=== PATIENT | female | born 1990 | race Caucasian/White ===

== ENCOUNTER 2018-03-15 11:33 | Emergency (ER) | payer MEDICAID, SELFPAY ==
[2018-03-15 11:34] VITALS: BP 131/82; PULSE 77; RESP 16; TEMP 36.6; O2SAT 100; BMI 23.0
--- NOTE | 2018-03-15 11:55 | RAD_ITS ---
STUDY: X-RAY - RIGHT FOOT CLINICAL: Female, 28 years old. Pain following a recent fall. TECHNIQUE: 3 view(s) of the foot. COMPARISON: None. FINDINGS: Normal talus, calcaneus, and tarsal bones. Normal visualized subtalar, talonavicular, calcaneocuboid, tarsal and tarsometatarsal articulations. Normal metatarsi. Normal metatarsophalangeal joint of the great toe. Normal tibial and fibular sesamoid bones. Normal interphalangeal joint of the great toe. Normal phalanges of the great toe. Normal second through fifth metatarsophalangeal joints. Normal interphalangeal joints and phalanges of the lesser toes. The soft tissue structures are unremarkable. RAD/Foot min 3 Views IMPRESSION: Normal x-ray examination of the foot. Electronically Signed: Len Ontiveros MD at 12:48 EST Tel [phone], Service support ,
--- NOTE | 2018-03-15 11:58 | ED.DCSUM_ITS ---
- ER Visit Summary Date of Service: 03/15/18 Chief Complaint: Right foot injury History of Present Illness: The patient is a 28 F who presents for evaluation of a right foot injury that occurred 2 days ago. Patient slipped on some steps and fell, with burning in her foot upon landing. She has pain with weightbearing and improvement with remaining still. She is used ice, Motrin and Tylenol with some relief of the pain. Pain is mainly on the dorsum of the distal foot and worse with movement of the toes. Patient denies any numbness or paresthesia in the foot. Physical Examination: Patient is awake and alert, well-nourished and well-developed in no distress. Examination of the lower extremities shows symmetric appearance, 2+ DP pulses and symmetric. Right foot has contusion to the dorsum of the foot at the base of the second through fourth toes. Sensation and motor function intact all dermatomes. No deformities. Tenderness to palpation on the plantar surface of the distal foot. No tenderness to palpation of the ankle, including the posterior malleoli. No tenderness to palpation of the navicular head or base of the fifth metatarsal. Remainder of exam unremarkable. Test Results: Clinical Impression(s) from Imaging Studies Foot X-Ray 03/15/18 11:55 IMPRESSION: Normal x-ray examination of the foot. Electronically Signed: Len Ontiveros MD at 12:48 EST Tel [phone], Service support , Emergency Department Course and Treatment: Patient took Motrin and Tylenol 2 hours prior to presentation, and thus was not given any further pain medication. X-ray of the foot showed no fractures or dislocations. Patient was placed in a postop shoe, and was able to ambulate more comfortably. She will use [id number]-[id number] pain medication, ice, rest and elevation. Patient discharged home. Treatment Plan: [] Disposition: [] Impression: Right foot sprain, right foot contusion This note was generated with Aginova[employer] software. It may contain incorrect words, spelling, and punctuation that were not noted in review of the chart prior to signing ED Disposition - Plan for ED Patient: Disposition: Home or Assisted Living Chief Complaint: Lower Extremity Injury Instructions: ED Sprain Foot Referrals: Pascale Andersen MD [STAFF PHYSICIAN] - 1 Week if not improving Additional Instructions: Wear the postop shoe for comfort. Rest and elevate your foot as much as possible over the next few days. you may use gyor-tvy-bpvfidr pain medication and ice as needed to help with pain control. If you have any worsening of your condition or any new concerning symptoms, please return immediately to the emergency department for another evaluation.
--- NOTE | 2018-03-15 13:20 | ED.DEP ---
ED Disposition - Plan for ED Patient: Disposition: Home or Assisted Living Chief Complaint: Lower Extremity Injury Instructions: ED Sprain Foot Referrals: Pascale Andersen MD [STAFF PHYSICIAN] - 1 Week if not improving Additional Instructions: Wear the postop shoe for comfort. Rest and elevate your foot as much as possible over the next few days. you may use sttx-itx-[id number] pain medication and ice as needed to help with pain control. If you have any worsening of your condition or any new concerning symptoms, please return immediately to the emergency department for another evaluation.
[2018-03-15 13:27] VITALS: RESP 14
== END 2018-03-15 13:47 | disposition home or self-care (01) ==
PROVIDERS: Emergency Provider Emergency Medicine
DX: S93.601A Unspecified sprain of right foot, initial encounter (principal); W01.0XXA Fall on same level from slipping, tripping and stumbling without subsequent striking against object, initial encounter; Z72.0 Tobacco use
CPT/HCPCS: 73630; 99283

== ENCOUNTER → 2019-09-06 14:29 | Outpatient (CLI) | payer MEDICAID, SELFPAY ==
[2019-09-06 15:27] LABS: Absolute Lymphocyte Count 1.97 X10^3/uL (0.83-4.51); Basophil# 0.06 X10^3/uL; Basophil% 0.7 % (0-1); Eosinophil# 0.11 X10^3/uL; Eosinophils% 1.4 % (0-5); Hematocrit 40.3 % (37-47); Hemoglobin 13.5 g/dL (12.0-15.0); Lymphocyte # 1.97 X10^3/ul (4.0); Lymphocyte % 24.5 % (19-41); Mean Corp Hgb Conc 33.5 g/dL (32-36); Mean Corpuscular Hgb 30.3 pg (27.0-32.0); Mean Corpuscular Volume 90.6 fL (81-99); Monocyte# 0.83 X10^3/uL; Monocyte% 10.3 % (0-10); NRBC Flagged by Analyzer 0 % (0-5); Neutrophil # 5.04 X10^3/uL (2.7-7.7); Neutrophil % 62.9 % (47-70); Platelet Count 297 K/mm3 (150-450); RBC Distribution Width CV 11.9 % (11.6-14.6); RBC Distribution Width SD 39.1 fl (35.1-43.9); Red Blood Count 4.45 M/mm3 (4.2-5.4)
== END ==
PROVIDERS: Referring Provider Obstetrics & Gynecology; Visit Provider Obstetrics & Gynecology
DX: R10.31 Right lower quadrant pain (principal)
CPT/HCPCS: 36415; 85025; 87086

== ENCOUNTER 2019-10-18 05:51 | Day surgery (SDC) | payer MEDICAID, SELFPAY ==
--- NOTE | 2019-10-12 01:37 | HP_ITS ---
Intake Vital Signs 10/12/19 BMI 23.0 10/12/19 Height 5 ft 3 in 10/12/19 Weight: 135 lb 10/12/19 BMI 23.9 10/12/19 BP 108/74 10/12/19 Blood Pressure Location Rt brachial 10/12/19 Position Sitting 10/12/19 Respiration 16 10/12/19 Temp 98.1 F 10/12/19 Temp Source Temporal Intake Visit Reasons: Consult Appy Set Rider Required: No Is patient in pain?: Yes (lower abdomen) Allergies strawberry Allergy (Verified 10/12/19 13:19) Hives venom-honey bee [bee venom (honey bee)] Allergy (Verified 10/12/19 13:19) Anaphylaxis MUSCLE RELAXERS Allergy (Uncoded 10/12/19 13:19) Rash Medications Acetaminophen [Tylenol Extra Strength] 500 - 1,000 mg PO Q6H PRN PRN 10/11/19 [History Confirmed 10/12/19] Naproxen [Naprosyn] 500 mg PO BID PRN PRN 10/11/19 [History Confirmed 10/12/19] PFSH Medical History Endometriosis (Acute) Surgical History S/P anal fissurectomy (Acute) S/P hysterectomy (Acute) S/P removal of ovarian cyst (Acute) Status post hemorrhoidectomy (Acute) Family History Grandmother Heart disease Mother Thyroid disorder Social History (Updated 10/12/19 @ 13:[address] Bolivar Bullard MD) Smoking Status: Current every day smoker alcohol intake: current alcohol intake frequency: a few times a week substance use type: marijuana HPI HPI HPI: NGUYEN HUDSON, is a 29 F who presents to the office today for HPI HPI Surgical H&P: Yes HPI: NGUYEN HUDSON, is a 29 F who presents to the office today for Preoperative evaluation before laparoscopic appendectomy. The patient is having oophorectomy by Dr. Bonilla Due to hemorrhagic cyst. The patient has been having low pelvic pain right worse than left for years. Patient is not having any nausea or vomiting. ROS General General: No weight change or fatigue Cardio Cardiovascular: No murmur, pacemaker, heart disease, atrial fibrillation, high blood pressure, heart attack, heart stent, palpitations, shortness of breat with exertion or chest pain Psych Psychiatric: Yes depression and anxiety Resp Respiratory: No shortness of breath, No sleep apnea, No cough, No COPD, No asthma, No emphysema, No wheezing Gastro Gastrointestinal: Yes abdominal pain, No nausea or vomiting, No diarrhea, No constipation, No blood in stool, No acid reflux, No hemorrhoids, No ulcers, No gallbladder problem, No black,tarry stools Sean Hematologic: No blood thinners Exam Const General: cooperative Orientation: alert, oriented x3 Resp Effort & Inspection: normal respiratory effort Auscultation: clear to auscultation bilaterally Cardio Rate: regular rate Rhythm: regular rhythm Heart Sounds: no murmurs GI Inspection: non-distended Palpation: soft, nontender Assessment & Plan Problems 1. Left lower quadrant pain R10.32 Plan The patient is having lower abdominal pain and is having oophorectomy. She has chronic lower abdominal pain with right lower worse than left. She is requesting laparoscopic appendectomy to prevent future appendicitis and I discussed that this would prevent appendicitis in the differential in the future with her abdominal pain as well. I discussed surgery in detail. Discussed the risks including not limited to bleeding, infection, injury to surrounding organs and the patient would like to proceed with appendectomy during oophorectomy. We discussed the current risks associated with COVID-19. While it is understood that there is a community spread of COVID-19, the risk of james COVID-19 while at [facility] ([facility]) is very low; however, the risk cannot be completely mitigated because of the community spread of the disease. We discussed in detail the risk of exposure to and/or potential harm posed by the COVID-19 virus with having a surgery/procedure at this time versus the risk of delaying the surgery/procedure. It is not possible to know either the risk of delaying the surgery or procedure or chance of getting an infection with perfect accuracy, but a joint decision was made to proceed at this time with the scheduled surgery/procedure as indicated on the consent form. Patient was notified that we will need to comply with any screening or testing [facility] wishes to perform or that surgery may be delayed for any positive results. Bolivar Bullard MD Pager: [facility] [address] [place] [address], [address] [place] [address] Office: Coding Level of Care Code Off vis,new,level 3 Diagnoses Left lower quadrant pain R10.32 10/12/19 1337 <Electronically signed by Bolivar sheffield MD> Date _ Bolivar Bullard MD I have re-examined the patient. There are no clinical changes since date of exam.
[2019-10-12 13:19] VITALS: BMI 23.0
--- NOTE | 2019-10-12 16:40 | EKG12_ITS ---
Test Reason : PREOP Blood Pressure : / mmHG Vent. Rate : 065 BPM Atrial Rate : 065 BPM P-R Int : 154 ms QRS Dur : 088 ms QT Int : 402 ms P-R-T Axes : 048 045 057 degrees QTc Int : 418 ms Normal sinus rhythm Normal ECG Confirmed by YVONNE NOVA, CEE ([id number]), desk editor STUART RANDALL ([id number]) on 10/16/2019 9:54:05 AM Referred By: Colton Bonilla Confirmed By:NILA RUSSELL MD
[2019-10-12 17:11] LABS: Hematocrit 42.3 % (37-47); Hemoglobin 14.2 g/dL (12.0-15.0); Mean Corp Hgb Conc 33.6 g/dL (32-36); Mean Corpuscular Volume 92.4 fL (81-99); Mean Platelet Vol. 9.9 fl (6.2-12.0); Platelet Count 352 K/mm3 (150-450); RBC Distribution Width CV 11.7 % (11.6-14.6); RBC Distribution Width SD 39.5 fl (35.1-43.9); Red Blood Count 4.58 M/mm3 (4.2-5.4); White Blood Count 9.3 K/mm3 (4.4-11.0)
[2019-10-12 17:13] LABS: Partial Thromboplast Time 30.2 Seconds (24.1-36.2)
[2019-10-12 18:31] LABS: EST Glomerular Filtration Rate 90 mL/min (>60); Est Glom Filt Rate - Afr Amer 109 mL/min (>60)
--- NOTE | 2019-10-17 22:53 | PCM.HP.BLA ---
History and Physical Date of Admission: 10/18/19 Surgical History and Physical Landy Espinosa, a 29 year old female 4 0 1 0 4, presents for L/S bilateral oophrectomy, appendectomy on October 18, 2019 at 7:30. -- Chronic RLQ Pain; Dyspareunia; Recurrent Endometriosis; -- RLQ pain which began several months. Landy claims it started suddenly and has been present worsened on Saturday 09/02. It occurs all the time. It is located in the RLQ of the abdomen. Landy characterizes it to be non-radiating. Landy characterizes the quality cramping. Landy characterizes the quality searing.; Landy characterizes the quality aching. Severity is moderate and not improving; Additional comments are: Seen at [facility] on 09/03/19.; Additional comments are: History of hysterectomy and bilateral salpingectomy; separate left cystectomy; pain slowly building over several years now nearly unbearable; no CT scan, urine or bloodwork at [facility]. MEDICATIONS HISTORY: Patient is also takin. naproxen 500 mg tablet, One pill by mouth twice a day ALLERGIES: Strawberries, Rash, [place], Rash, Flexeril and Rash Infections - Chicken pox Illnesses - depression, anxiety, ADHD, PTSD, borderline personality disorder Accidents - None Hospitalizations - outpatient procedures and Childbirth tooth infections; Review of Systems: GENERAL - Denies fever, or chills SKIN - Denies skin changes EYES - Denies visual changes EARS - Denies difficulty hearing NOSE - Denies nasal congestion or bleeding MOUTH - Denies sore throat or difficulty swallowing NECK - Denies pain or swelling RESPIRATORY - Denies shortness of breath or wheezing CARDIOVASCULAR - Denies palpitations or chest pain GASTROINTESTINAL - Denies nausea, vomiting, diarrhea, constipation GENITOURINARY - Denies dysuria, frequency of urination, incontinence of urine MUSCULOSKELETAL - Denies joint or muscle pain NEUROLOGICAL - Denies localized numbness or weakness PSYCHIATRIC - Denies depression or anxiety ENDOCRINE - Denies heat or cold intolerance, weight loss or gain HEMATO-IMMUNOLOGIC - Denies excesive bleeding with cuts SOCIAL HISTORY: Alcohol Use - denies drinking Smoking - 1/2 pack/day--advised to quit Diet - no special diet Lifestyle - moderate stress lifestyle and single Exercise - minimal Seat Belt Use - always Employer - [employer] 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 Mother: Cervical cancer. Maternal Grandmother: kidney cancer. MENSTRUAL HISTORY: LMP Known?- Prior Hysterectomy, LMP - 08/11/15, Age Onset Menarche - 10 PAST PREGNANCIES: Total Pregnancies - 5; Full Term Pregnancies - 4; Premature - 0; Abortions, Induced - 0; Abortions, Spontaneous - 1; Ectopics - 0; Multiple Births - 0; Living Children - 4 SURGICAL HISTORY: 1. 10/24/2014 Lap BTO ; Jennifer Loja MD 2. Cyst removed from groin 2007 3. Moles removed from chest - benign 2009 4. 12/19/2015 Lap left ovarian cystectomy ; Jennifer Loja MD 5. 08/22/2015 [facility], Bilateral salpingectomy ; Jennifer Loja MD 6. 02/24/2015 hemmorhoidectomy, fissure repair ; Dr. Guardado PHYSICAL EXAM BP- 110/68 Sitting, Right arm, regular cuff Weight- 133.24332 lbs Height- 63.00 inch BMI:23.61 CONSTITUTIONAL - NAD, well nourished, and well developed SKIN - No rash, lesions, or ulcers HEENT - Normocephalic, PERRLA, EOMI NECK - No nodes, no nuchal rigidity and thyroid normal size and texture LYMPH NODES - Palpation of lymph nodes in neck and groins within normal limits LUNGS - CTA x2 without wheezes, crackles or rales CARDIAC - Regular rate and rhythm without rubs, murmurs, or gallops ABDOMEN - Without hepatosplenomegaly, distention, masses, rebound, or guarding; normal bowel sounds; no hernias EXTREMITIES - No edema or calf tenderness NEUROLOGICAL - Cranial nerves II-XII grossly intact PSYCHIATRIC - A and O to time, place, person, mood and affect External Genitial Vagina - non-tender without lesions Urethra/Urethral Meatus - non-tender Bladder - non-tender and moderate tenderness Vagina - vaginal landers are pink and moist without loss of rugae and no evidence of atropy Cervix - surgically absent Uterus - surgically absent Adnexa - exquisite tenderness both adnexa ASSESSMENT/PLAN: 1. Dyspareunia, Endometriosis Ovary and Right Lower Quadrant Pain Likely recurrent endometriosis. Will check CBCD and Urine culture today but doubt UTI or acute appendicitis given time course. Discussed options for treatment including depoprovera, Orilissa, or BSO with appy and pt desires the surgery. Discussed RBAs including need for termite treater HRT and possibility of laparotomy and all questions answered. Procedure Criteria Procedure Type: Elective COVID Risk Discussion: The surgeon/proceduralist and patient have discussed in detail the risk of exposure to and/or potential harm posed by the COVID-19 virus with having a surgery/procedure at this time versus the risk of delaying the surgery/procedure. It is not possible to know either the risk of delaying the surgery or procedure or chance of getting an infection with perfect accuracy, but a joint decision was made between the patient and the surgeon/proceduralist to proceed at this time with the scheduled surgery/procedure as indicated on the consent form.
[2019-10-18] VITALS (11 sets, daily range): BP systolic 88–110; BP diastolic 50–62; PULSE 62–74; RESP 14–18; TEMP 36.6–37.1; O2SAT 95–100; BMI 24.0
--- NOTE | 2019-10-18 | APP_PTH ---
PATIENT: NGUYEN HUDSON LOC: [facility] U#:[id number] AGE/SX: 29/F ROOM: RE10/18/[address]: Dr. Colton Bonilla MD : 1990 BED: DIS: 10/18/2019 SPEC #: [id number] RECD: 10/18/19 10:55 STATUS: VICENTE HOLLOWAY #: [id number] ADRIANA: 10/18/19 00:[address]: Colton Bonilla DEPT: SURGICAL PATHOLOGY RECD BY: Js Berry ENTERED: 10/18/19 10:56 SP TYPE: APPENDIX OTHR DR: Dr. Bolivar Bullard MD No Primary Care Phys Tissues: A - Appendix, NOS B - Ovary, NOS Procedures: Surgery Specimen Level IV HEADER OPERATION: Laparoscopic oophorectomy, appendectomy PRE-OP DIAGNOSIS: Dyspareunia, endometriosis, right lower quadrant pain; left lower quadrant pain TISSUE SUBMITTED: A - Appendix, B - Bilateral ovaries MICROSCOPIC DIAGNOSIS A. Appendix, appendectomy: Appendix, no pathologic diagnosis. See comment. B. Bilateral ovaries: Consistent with pieces of bilateral ovaries with physiologic follicular cysts and corpus lutea. Focal calcifications. See comment. SJ:rg 10/19/19 COMMENT A. The entire appendix is examined. No evidence of acute inflammation in the lumen or mucosa. B. A minute fragment of benign fallopian tube is also noted and may represent portion of fimbrial end of fallopian tube. MICROSCOPIC DESCRIPTION Slides are reviewed. GROSS DESCRIPTION A - Received is one container labeled with the patient's name and designated appendix. The specimen consists of an appendix measuring 5.5 cm in length and up to 0.6 cm in diameter. The attached periappendiceal adipose tissue measures up to 1 cm in width. No obvious perforation is identified. The lumen contains a small amount of fecal material. No fecalith is identified. The entire appendix is submitted in two cassettes, cassette 1 contains the tip and proximal portion. B - Received in fixative is one container labeled with the patient's name and designated bilateral ovaries. The specimen consists of bilateral ovaries in four pieces measuring in aggregate 5 x 5 x 1 cm. The ovaries are not identified as right or left. Sections reveal a few corpus luteum. No obvious mass lesion is identified. Foreign Agent sections from all four pieces are submitted in four cassettes. / SONAL:supa 10/18/19 TC:5 CPT: 01705 x2, [id number]
[2019-10-18] MEDS: Lactated Ringers 1,000 ML 100 ML IV ×2 (06:34→09:20)
--- NOTE | 2019-10-18 07:28 | PCM.OPRPT ---
Report of Operation Date of Procedure: 10/18/19 Pre-Operative Diagnosis: Chronic RLQ Pain; Dyspareunia; Recurrent Endometriosis Post-Operative Diagnosis: Chronic RLQ Pain; Dyspareunia; Recurrent Endometriosis, Adhesions Surgery/Procedure Performed:: Laparoscopic Bileratal Salpingectomy and Appendectomy, Lysis of Adhesions Description of Surgical Findings:: Normal size ovaries with the right ovary and tube densely adhered to the right pelvic sidewall. Adhesions of the recto sigmoid colon over the left ovary which were taken down sharply and bluntly. Peristalsis of both ureters after both ovaries had been removed. Appendix appeared normal. applications support lead: Dane Call Type of Anesthesia:: General - Endotracheal Anesthesiologist: Lisset Puentes Specimen's removed: Bilateral ovaries and appendix Estimated Blood Loss (mL): Minimal Fluids Replaced: Crystalloid Description of Procedure: Surgeon: Colton Bonilla MD, FACOG C0-Surgeon: Bolivar Bullard MD (Appendectomy and Lysis of Adhesions) Indications: This is a 29 year old patient who has the above diagnosis. She had a previous vaginal hysterectomy and left ovarian cystectomy. She is aware that this procedure will leave her postmenopausal and that it also may not be helpful for the pain that she has been having. Questions were answered. Procedure: The patient was taken to the operating room where after induction of general anesthesia, she was placed in the dorsolithotomy position and prepped and draped in the usual sterile fashion. The bladder was drained of approximately 50 cc of clear yellow urine with a catheter. A sponge stick was placed in the vagina and attention was turned toward the laparoscopic portion of the procedure. Approximately 20 cc of half percent ropivacaine was injected subumbilically, suprapubically and midway between. A 5 mm bladeless trocar was placed subumbilically and intraperitoneal placement confirmed. After CO2 insufflation was complete, a 5 mm bladeless trocar was introduced suprapubically. This was eventually converted to a 10/12 mm blade less trocar. The above findings were noted. A 5 mm bladeless port was then placed midway between these 2 ports. Each ovary was identified and an Enseal device was used to divide the infundibulopelvic ligaments. Some adhesions were noted and these were taken down bluntly but the majority of left for Dr. Bullard to complete during his portion of the procedure. Ovaries were removed through the lower 10 mm port. The peritoneal cavity and upper abdomen were examined and noted to be normal. Dr. Bullard performed his portion procedure at this point. At the conclusion of his surgery laparoscopic instruments with as much CO2 gas as possible were removed and incisions were closed with interrupted 4-0 Monocryl suture. Steri-Strips placed across the incision. Vaginal instruments were removed. The patient tolerated the procedure well was taken to recovery room in satisfactory condition and sponge instrument and needle counts were all reportedly correct. Estimated blood loss for the case was minimal. There were no apparent complications of the surgery. Specimens to pathology was bilateral ovaries and appendix Grafts/Implants Used: None - Complications None - Admit VTE Documentation VTE Present on Admission: Yes VTE Mechan Device Prophylaxis: SCD's
[2019-10-18] MEDS: Ropivacaine 0.5% 30 ML Vial (07:45)
--- NOTE | 2019-10-18 08:33 | DCINST_ITS ---
Discharge Diet: No Restrictions - Increase fluid intake for the next 48 hours. Discharge Activity: Return to Normal Activity, May Drive - when you are no longer taking pain/narcotic medicines., May Shower, May Take a Tub Bath May resume sexual activity in: 3 weeks Additional Activity Instructions:: Ambulate often the next week after surgery. Nothing in the vagina for 5 days. Call your doctor if your incision/area has: Continuous Slow Oozing, Sudden Increased Bleeding, Increased Pain/ Swelling, Increased Redness, Foul Smelling Discharge Call your doctor if you observe: Fever of 101 or Higher, Inability to urinate, Inability to have a bowel movement, Using more than one pad per hour Allergies/Adverse Reactions: Allergies strawberry Allergy (Verified 10/18/19 06:20) Hives venom-honey bee [bee venom (honey bee)] Allergy (Verified 10/18/19 06:20) Anaphylaxis MUSCLE RELAXERS Allergy (Uncoded 10/18/19 06:20) Rash Medications to take at Discharge Acetaminophen [Tylenol Extra Strength] 500 - 1,000 mg PO Q6H PRN PRN 10/11/19 Naproxen [Naprosyn] 500 mg PO BID PRN PRN 10/11/19 Estradiol 2 mg PO DAILY #100 tab 10/18/19 Oxycodone [Oxyir] 5 mg PO Q6H PRN PRN 7 Days #10 tablet 10/18/19 Tramadol HCl [Ultram] 50 mg PO BID 10/18/19 The following prescriptions were given: Estradiol 2 mg PO DAILY #100 tab Transmission Status: Pending to [facility] Oxycodone [Oxyir] 5 mg PO Q6H PRN PRN 7 Days #10 tablet PRN Reason: Pain Score 6-10/10 Transmission Status: Sent to [facility] Orders to be completed after discharge: 12 Lead EKG [CV[facility]] Time Frame: 10/11/19, Facility: [facility], Location: Cardiovascular Services Primary Care Physician: Care Physician,No Primary [Primary Care Provider] - Test Results: Test results from this visit will be discussed in further detail at your follow- up appointment, if applicable. Please Follow Up With: Colton Bonilla MD - [phone] When: 2-3 weeks
--- NOTE | 2019-10-18 08:44 | OP.PCM_ITS ---
Problem List (1) Lower abdominal pain Status: Acute Report of Operation Date of Procedure: 10/18/19 Pre-Operative Diagnosis: Lower abdominal pain Post-Operative Diagnosis: Same Surgery/Procedure Performed:: Laparoscopic appendectomy Specimen's removed: Appendix Description of Procedure: Procedure was done in conjunction with Dr. Bonilla who performed bilateral oo phorectomy. I was called into the procedure after Dr. Bonilla was complete. There were adhesions from the sigmoid colon to the anterior abdominal wall. These were taken down. In case these included diverticulum I did place Hem-o-chuckie clips below the area of adhesion takedown. Next attention was paid to the appendix. It was elevated and the Enseal was used to take down the mesoappendix. The base of the appendix was stapled across and it was placed into a retrieval bag. The base of the appendix had good hemostasis. The appendix was removed through the 12 mm port. The ports were then removed and the abdomen was allowed to desufflate. The fascia at the 12 mm port was closed with an interrupted 0 Vicryl suture in a [id number] fashion. Incisions were then injected with anesthetic and closed with interrupted 4-0 Monocryl suture as well as Steri- Strips and bandages. Patient tolerated the procedure well was brought to PACU. - Admit VTE Documentation VTE Mechan Device Prophylaxis: SCD's
[2019-10-18] MEDS: oxyCODONE 5 MG Tablet PO (10:35)
--- NOTE | 2019-10-18 11:13 | SUR.PHASEII ---
SS dry and intact to abdominal incisions. no drainage on peripad.
== END 2019-10-18 11:14 | disposition home or self-care (01) ==
LOC: SDC 05:52 → AC 05:53
PROVIDERS: Anesthesiology; Surgery; Referring Provider Obstetrics & Gynecology; Visit Provider Obstetrics & Gynecology
PROC: (CPT 58661; principal; 2019-10-18 07:10)
PROC: 0DTJ4ZZ Resection of Appendix, Percutaneous Endoscopic Approach (ICD-10-PCS; CPT 44970; 2019-10-18 07:10)
DX: N83.02 Follicular cyst of left ovary (principal); N83.01 Follicular cyst of right ovary; N83.12 Corpus luteum cyst of left ovary; N83.11 Corpus luteum cyst of right ovary; N83.8 Other noninflammatory disorders of ovary, fallopian tube and broad ligament; N73.6 Female pelvic peritoneal adhesions (postinfective); F17.210 Nicotine dependence, cigarettes, uncomplicated
CPT/HCPCS: 00840; 44970; 58661; 36415; 82565; 85027; 85610; 85730; 86850; 86900; 86901; 87635; 88304; 88305; 93005; G2023; J7120; C1760; J2405; U0003

== ENCOUNTER 2020-12-16 21:22 | Emergency (ER) | payer MEDICAID, SELFPAY ==
[2020-12-16 21:25] VITALS: BP 100/69; PULSE 71; RESP 18; TEMP 36.3; O2SAT 99; BMI 19.5
--- NOTE | 2020-12-16 23:02 | EDS_ITS ---
HPI History of Present Illness Chief Complaint: General Illness Informant: patient Narrative Narrative: Patient presents with hot flashes for a few days. She states she just feels like she suddenly gets warm. However, she does not have a fever. She states she just does not feel right and she cannot explain any details as to why. With quite some effort, I find out that she was on hormonal therapy after hysterectomy 1 year ago. She ran out of that prescription about 2-1/2 to 3 weeks ago. She just restarted meds. She now is having these hot flashes. Nothing specifically makes her symptoms better or worse. She has no focal complaint found on review of systems. [facility] Medical History (Updated 12/17/20 @ 01:[address] Bradley Jim MD) Endometriosis Home Medications acetaminophen 500 - 1,000 mg PO Q6H PRN PRN 10/11/19 [History Last Taken Unknown] naproxen 500 mg PO BID PRN PRN 10/11/19 [History Last Taken Unknown] estradiol 2 mg PO DAILY #100 tab 10/18/19 [Rx Last Taken Unknown] tramadol 50 mg PO BID 10/18/19 [History Last Taken Unknown] ondansetron HCl [Zofran] 4 mg PO Q6H PRN #10 tab 12/17/20 [Rx Last Taken Unknown] potassium chloride 20 meq PO BID #8 tab 12/17/20 [Rx Last Taken Unknown] Allergy/AdvReac Type Severity Reaction Status Date / Time strawberry Allergy Hives Verified 12/16/20 21:27 venom-honey bee Allergy Anaphylaxis Verified 12/16/20 21:27 [bee venom (honey bee)] MUSCLE RELAXERS Allergy Rash Uncoded 12/16/20 21:27 Family History Grandmother Heart disease Mother Thyroid disorder Surgical History S/P anal fissurectomy S/P hysterectomy S/P removal of ovarian cyst Status post hemorrhoidectomy Social History Smoking Status: Current every day smoker tobacco type: cigarettes alcohol intake: current alcohol intake frequency: a few times a week substance use type: marijuana ROS ROS ED Constitutional Constitutional ED: Reports subjective Eyes Eyes: Denies blurry vision ENT ENT ED: Denies rhinorrhea or sore throat Cardiovascular Cardiovascular: Denies chest pain, palpitations or racing heartbeat Respiratory/Chest Respiratory/Chest: Denies cough or dyspnea Gastrointestinal Gastrointestinal: Reports nausea; Denies abdominal pain, constipation, diarrhea, melena or vomiting Genitourinary Genitourinary ED: Denies dysuria or hematuria Musculoskeletal Musculoskeletal: Denies arthralgias or myalgias Integumentary Denies rash Neurologic Neurologic: Denies headache(s), paresthesias or weakness Psychiatric Psychiatric: Denies anxiety or depression Endocrine Endocrinology: Denies polydipsia or polyuria Allergic/Immunologic Allergic/Immunologic ED: Denies urticaria EXAM Physical Exam Const Vital Signs: 12/16/20 21:25 12/16/20 23:17 12/17/20 00:16 Temperature 97.4 F L Temperature Source Temporal Pulse Rate 71 Respiratory Rate 18 14 Respiratory Effort Normal Non-Labored Respiratory Pattern Normal Blood Pressure 100/69 Blood Pressure Mean 79 Pulse Ox 99 Oxygen Delivery Method Room Air Positive well nourished and well developed General Appearance ED: well developed and NAD HEENT Reports dry mucous membranes Mouth ED: Yes dry mucous membranes Mouth: dry mucous membranes Eyes PERRL and EOMs intact bilaterally Neck no lymphadenopathy Chest Wall inspection of chest normal and palpation of chest normal Resp normal respiratory effort and clear to auscultation bilaterally Effort and Inspection: Negative for pain with movement Auscultation: Negative for rales, rhonchi or wheezes Cardio regular rate and regular rhythm GI normal to inspection, nondistended, normoactive bowel sounds, non-tender and non-distended Palpation: soft Back/Spine no CVA tenderness Extremity normal to inspection General Extremety ED: Negative for edema or tenderness General Extremity: Negative for edema Neuro oriented x3 Sensorium / Orientation: alert Psych mental status grossly normal Skin no rashes or lesions noted and no wounds MDM MDM MDM Narrative Medical decision making narrative: Patient's blood work show nonspecific elevation of her white count. She does appear to be somewhat dry with increased BUN to creatinine ratio. She does have IV fluids that have replaced this. Potassium is slightly low. This can be replaced orally. Patient is feeling better. I think her symptoms of hot flashes are likely due to the changes in hormonal therapy. I think she should stay on her new prescription. As she is gotten occasional dry heaves and nausea I will write for some Zofran. We will also give her a few days of potassium. Lab Data Attestation: I reviewed the patient's lab results. Labs: Laboratory Results - last 24 hr 12/16/20 12/16/20 23:45 23:45 WBC 13.5 H RBC 4.30 Hgb 13.0 Hct 39.3 MCV 91.4 MCH 30.2 MCHC 33.1 RDW Std Deviation 39.3 RDW Coeff of Ayse 11.8 Plt Count 285 MPV 10.5 Immature Gran % (Auto) 0.500 Neut % (Auto) 74.4 H Lymph % (Auto) 13.3 L [place] % (Auto) 11.1 H Eos % (Auto) 0.3 Baso % (Auto) 0.4 Absolute Neuts (auto) 10.1 H Absolute Lymphs (auto) 1.79 Nucleated RBC % 0 Sodium 143 Potassium 3.1 L Chloride 113 H Carbon Dioxide 25.0 Anion Gap 5 BUN 17 Creatinine 0.60 Estim Creat Clear Calc 107.01 Est GFR (MDRD) Af Amer 148 Est GFR (MDRD) Non-Af 122 BUN/Creatinine Ratio 28.1 H Glucose 95 Calcium 8.2 L Discharge Plan Triage Chief Complaint: General Illness ED Provider: Bradley Jim Dx/Rx/DC Orders Clinical Impression: Hot flashes, Hypokalemia Instructions: ED Hypokalemia Prescriptions: New ondansetron HCl [Zofran] 4 mg tablet 4 mg PO Q6H PRN (Reason: nausea and vomiting) Qty: 10 RF: 0 potassium chloride 20 mEq tablet extended release 20 meq PO BID Qty: 8 RF: 0 No Action acetaminophen 500 MG tablet 500 - 1,000 mg PO Q6H PRN PRN (Reason: Pain Or Fever) RF: 0 naproxen 500 MG tablet 500 mg PO BID PRN PRN (Reason: Pain Or Fever) RF: 0 tramadol 50 MG tablet 50 mg PO BID RF: 0 estradiol 2 MG tablet 2 mg PO DAILY Qty: 100 RF: 4 Primary Care Provider: Care Physician,No Primary Referrals: Colton Gaspar MD [STAFF PHYSICIAN] - 3-5 Days if not improving Care Physician,No Primary [Primary Care Provider] - Disposition Disposition: Home, Self Care
[2020-12-16] MEDS: 0.9% Normal Saline 1,000 ML 1000 ML IV (23:12)
[2020-12-16] MEDS: Ondansetron 4 MG/2 ML Vial IV (23:13)
[2020-12-16 23:55] LABS: Absolute Lymphocyte Count 1.79 X10^3/uL (0.83-4.51); Absolute Neutrophil Count 10.1 X10^3/uL (2.0-7.7); Basophil# 0.05 X10^3/uL; Basophil% 0.4 % (0-1); Eosinophil# 0.04 X10^3/uL; Eosinophils% 0.3 % (0-5); Hematocrit 39.3 % (37-47); Lymphocyte # 1.79 X10^3/ul (0.83-4.51); Lymphocyte % 13.3 % (19-41); Mean Corp Hgb Conc 33.1 g/dL (32-36); Mean Corpuscular Hgb 30.2 pg (27.0-32.0); Mean Corpuscular Volume 91.4 fL (81-99); Mean Platelet Vol. 10.5 fl (6.2-12.0); Monocyte% 11.1 % (0-10); NRBC Flagged by Analyzer 0 % (0-5); Neutrophil # 10.05 X10^3/uL (2.7-7.7); Neutrophil % 74.4 % (47-70); Platelet Count 285 K/mm3 (150-450); RBC Distribution Width CV 11.8 % (11.6-14.6); RBC Distribution Width SD 39.3 fl (35.1-43.9); White Blood Count 13.5 K/mm3 (4.4-11.0)
[2020-12-17 00:08] LABS: Anion Gap 5 (5-15); BUN 17 mg/dL (7-18); BUN/Creat Ratio 28.1 RATIO (10-20); Calcium,Total 8.2 mg/dL (8.5-10.1); Chloride 113 mmol/L (98-107); EST Glomerular Filtration Rate 122 mL/min (>60); Est Glom Filt Rate - Afr Amer 148 mL/min (>60); Estimated Creatinine Clearance 107.01 ml/min; Glucose 95 mg/dL (74-106); Potassium 3.1 mmol/L (3.5-5.1); Sodium Level 143 mmol/L (136-145)
[2020-12-17 00:16] VITALS: RESP 14
[2020-12-17] MEDS: proMETHazine 25 MG/ML Syringe 12.5 MG IM (01:23)
== END 2020-12-17 01:30 | disposition home or self-care (01) ==
PROVIDERS: Emergency Provider Emergency Medicine
DX: E87.6 Hypokalemia (principal); N95.1 Menopausal and female climacteric states; F17.210 Nicotine dependence, cigarettes, uncomplicated; Z79.899 Other long term (current) drug therapy
CPT/HCPCS: 80048; 85025; 96361; 96372; 96374; 99285; A4216; J2405

== ENCOUNTER 2022-05-09 18:21 | Emergency (ER) | payer MEDICAID, SELFPAY ==
[2022-05-09 18:22] VITALS: BP 94/65; PULSE 64; RESP 18; TEMP 36.7; O2SAT 100; BMI 21.2
[2022-05-09] MEDS: Tetracaine 0.5% Ophthalmic Bottle 1 DRP OPHTHALMIC (20:25)
[2022-05-09] MEDS: Fluorescein 1 MG STRIP 1 STRIP OPHTHALMIC (20:25)
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
[2022-05-09] MEDS: Atropine Sulfate 1% 2 ml Bottle 1 DRP OPHTHALMIC (21:38)
[2022-05-09] MEDS: HYDROcodone Bitartrate/Apap 5/325 Tablet PO (21:38)
[2022-05-09 21:42] VITALS: RESP 14
== END 2022-05-09 21:45 | disposition home or self-care (01) ==
PROVIDERS: Emergency Provider Emergency Medicine; Visit Provider Emergency Medicine
DX: S05.02XA Injury of conjunctiva and corneal abrasion without foreign body, left eye, initial encounter (principal); H53.8 Other visual disturbances; F17.210 Nicotine dependence, cigarettes, uncomplicated; F12.90 Cannabis use, unspecified, uncomplicated; H57.13 Ocular pain, bilateral; W22.8XXA Striking against or struck by other objects, initial encounter
CPT/HCPCS: 99283

== ENCOUNTER 2023-10-11 11:03 | Emergency (ER) | payer MEDICAID, SELFPAY ==
[2023-10-11 11:04] VITALS: BP 108/74; PULSE 65; RESP 18; TEMP 36.6; O2SAT 100; BMI 25.0
--- NOTE | 2023-10-11 11:14 | CT_ITS ---
STUDY: CTA OF THE BRAIN REASON FOR EXAM: Female, 33 years old. migraines. Family H/O aneurysm RADIATION DOSAGE (If Supplied By Facility): CTDIvol = ( 39.98 ) mGy, DLP = ( 1161.04 ) mGycm TECHNIQUE: CT angiography was performed with a multi-detector CT scanner. Data acquisition was obtained from the skull base through the vertex following intravenous administration of IV 100mL Isovue-370. MIP images were reconstructed from the axial data set. Post-processing of the angiographic images was performed, with multiplanar reformation and 3D reconstruction. Individualized dose optimization techniques were used for this CT. COMPARISON: None. FINDINGS: Normal bilateral petrous carotid arteries. Normal right cavernous carotid artery with a normal supraclinoid bifurcation. Normal left cavernous carotid artery with a normal supraclinoid bifurcation. Normal right A1 segments of the anterior cerebral artery. Normal left A1 segments of the anterior cerebral artery. Normal intact anterior communicating artery (ACOM). Normal bilateral A2 segments of the anterior cerebral arteries. Normal right M1 and M2 segments of the middle cerebral arteries, with a normal M1 bifurcation. Normal left M1 and M2 segments of the middle cerebral arteries, with a normal M1 bifurcation. Normal right posterior communicating artery (PCOM). Normal left posterior communicating artery (PCOM). Normal bilateral vertebral arteries. Normal basilar artery with a normal basilar bifurcation. The visualized bilateral superior cerebellar (SCA) arteries are normal. Normal bilateral P1, P2 and visualized P3 segments of the posterior cerebral arteries. There is no demonstrated aneurysm of the [place]. There is no demonstrated abnormality of the visualized brain. Mucosal thickening of both maxillary sinuses inferiorly. CT/CTA Head W/WO Contrast IMPRESSION: Normal [place] without a demonstrated aneurysm or hemodynamically significant stenosis. Electronically Signed: Len Ontiveros MD at 12:34 EDT ,
--- NOTE | 2023-10-11 11:15 | EX.ED.VIS.HA ---
HPI History of Present Illness Chief Complaint: Headache Informant: patient Narrative Narrative: Patient presents secondary to migraine headaches. She states she had a history of migraines when she was much younger, but noted that they have worsened significantly in the past couple of months. She is now getting migraines weekly. She will typically wake up with headache and it tends to be located behind one of her eyes. She states typically she will to sleep it off until it resolves. She denies recent head trauma. No URI symptoms. She does report family history of a brain aneurysm in her great grandfather. [facility] Medical History (Updated 10/11/23 @ 14:[address] Amada Wagner MD) Endometriosis Home Medications ?Medication ?Instructions ?Recorded ?Last Taken ?Type acetaminophen 500 mg tablet 500 - 1,000 mg PO Q6H PRN PRN Pain 10/11/19 Unknown History Or Fever naproxen 500 mg tablet 500 mg PO BID PRN PRN Pain Or Fever 10/11/19 Unknown History estradiol 2 mg tablet 2 mg PO DAILY #100 tabs 10/18/19 Unknown Rx tramadol 50 mg tablet 50 mg PO BID 10/18/19 Unknown History ondansetron HCl 4 mg tablet 4 mg PO Q6H PRN nausea and 12/17/20 Unknown Rx (Zofran) vomiting #10 tabs potassium chloride 20 mEq 20 meq PO BID #8 tabs 12/17/20 Unknown Rx tablet,extended release atropine 1 % eye drops 1 drp LEFT EYE BID #2 mL 05/09/22 Unknown Rx diphenhydramine HCl 50 mg tablet 50 mg PO TID PRN headache #10 tabs 10/11/23 Unknown Rx (Benadryl Allergy) ketorolac 10 mg tablet 10 mg PO Q8H PRN pain 4 days #10 10/11/23 Unknown Rx tabs prochlorperazine maleate 10 mg 10 mg PO Q8H PRN nausea and 10/11/23 Unknown Rx tablet (Compazine) vomiting #10 tabs Allergy/AdvReac Type Severity Reaction Status Date / Time strawberry Allergy Hives Verified 10/11/23 11:04 venom-honey bee (bee venom Allergy Anaphylaxis Verified 10/11/23 11:04 (honey bee)) Family History Grandmother Heart disease Mother Thyroid disorder Surgical History S/P removal of ovarian cyst S/P hysterectomy S/P anal fissurectomy Status post hemorrhoidectomy Social History Smoking Status: Current every day smoker tobacco type: cigarettes alcohol intake: current alcohol intake frequency: a few times a week substance use type: marijuana ROS ROS ED Constitutional Constitutional ED: Denies chills or fever(s) Eyes Eyes: Denies change in vision or discharge from eye(s) ENT ENT ED: Denies discharge from eye(s), rhinorrhea or sore throat Cardiovascular Cardiovascular: Denies chest pain Respiratory/Chest Respiratory/Chest: Denies cough or dyspnea Gastrointestinal Gastrointestinal: Reports nausea and vomiting; Denies abdominal pain Genitourinary Genitourinary ED: Denies dysuria Musculoskeletal Musculoskeletal: Denies back pain or extremity pain Integumentary Denies Abrasions or rash Neurologic Neurologic: Reports headache(s); Denies weakness Psychiatric Psychiatric: Denies anxiety or depression Allergic/Immunologic Allergic/Immunologic ED: Denies lip swelling or urticaria EXAM Physical Exam Const Vital Signs: 10/11/23 11:04 10/11/23 13:04 Temperature 97.8 F Temperature Source Temporal Pulse Rate 65 78 Respiratory Rate 18 16 Blood Pressure 108/74 99/71 Blood Pressure Mean 85 80 Pulse Ox 100 99 Oxygen Delivery Method Room Air Room Air Positive well nourished and well developed General Appearance ED: well developed HEENT Reports moist mucous membranes Eyes EOMs intact bilaterally Resp normal respiratory effort and clear to auscultation bilaterally Cardio regular rate and regular rhythm GI non-tender Palpation: soft Extremity normal to inspection and full ROM Neuro oriented x3 and no sensory deficits noted Motor Exam: strength 5/5 throughout Psych mental status grossly normal MDM MDM MDM Narrative Medical decision making narrative: IV line established. Patient given IV fluids, Toradol, Compazine, and Benadryl. Given her family history of aneurysm we will obtain a CT of the head along with lab work. History & Record Review Discussion w/independent historian: Patient Lab Data Attestation: I reviewed the patient's lab results. Labs: Laboratory Results - last 24 hr 10/11/23 11:25 WBC 6.7 RBC 4.50 Hgb 13.1 Hct 40.1 MCV 89.1 MCH 29.1 MCHC 32.7 RDW Std Deviation 38.5 RDW Coeff of Ayse 11.9 Plt Count 324 MPV 9.8 Immature Gran % (Auto) 0.300 Neut % (Auto) 75.4 H Lymph % (Auto) 17.1 L [place] % (Auto) 5.3 Eos % (Auto) 0.9 Baso % (Auto) 1.0 Absolute Neuts (auto) 5.1 Absolute Lymphs (auto) 1.15 Nucleated RBC % 0 Sodium 141 Potassium 4.1 Chloride 107 Carbon Dioxide 31.0 Anion Gap 3 L BUN 16 Creatinine 0.72 Estim Creat Clear Calc 99.14 Est GFR (MDRD) Af Amer 119 Est GFR (MDRD) Non-Af 99 BUN/Creatinine Ratio 22.3 H Glucose 106 Calcium 9.3 Serum , Qual NEGATIVE Radiography Diagnostic Testing: Clinical Impression(s) from Imaging Studies Head CTA 10/11/23 11:14 IMPRESSION: Normal [place] without a demonstrated aneurysm or hemodynamically significant stenosis. Electronically Signed: Len Ontiveros MD at 12:34 EDT , Treatment and Re-Evaluation Narrative: CBC was a white count of 6.7 with a hemoglobin of 13.1. 75% neutrophils noted. Chemistry studies unremarkable. test negative. CTA of the head reveals no acute abnormalities. On repeat evaluation, patient states her headache is still a 6 out of 10. She was then given a dose of Solu-Medrol and Depakote. At this time patient states her headache is significantly improved. She will be discharged home with a prescription for Toradol, Compazine, and Benadryl. She will be referred to Dr. Goodman with neurology to establish care. Discharge Plan Triage Chief Complaint: Headache ED Provider: Amada Wagner Dx/Rx/DC Orders Clinical Impression: Migraine Instructions: ED, Migraine (Classical) Prescriptions: New ketorolac 10 mg tablet 10 mg PO Q8H PRN (Reason: pain) 4 Days Qty: 10 0RF prochlorperazine maleate [Compazine] 10 mg tablet 10 mg PO Q8H PRN (Reason: nausea and vomiting) Qty: 10 0RF Benadryl Allergy 50 mg tablet 50 mg PO TID PRN (Reason: headache) Qty: 10 0RF No Action acetaminophen 500 MG tablet 500 - 1,000 mg PO Q6H PRN PRN (Reason: Pain Or Fever) naproxen 500 MG tablet 500 mg PO BID PRN PRN (Reason: Pain Or Fever) tramadol 50 MG tablet 50 mg PO BID estradiol 2 MG tablet 2 mg PO DAILY Qty: 100 4RF ondansetron HCl [Zofran] 4 mg tablet 4 mg PO Q6H PRN (Reason: nausea and vomiting) Qty: 10 0RF potassium chloride 20 mEq tablet extended release 20 meq PO BID Qty: 8 0RF atropine 1 % drops 1 drp LEFT EYE BID Qty: 2 0RF Primary Care Provider: Care Physician,No Primary Referrals: Abelardo Kay MD [Non-Staff -Ordering Privileges] - As soon as possible Care Physician,No Primary [Primary Care Provider] - Print Language: Maltese Disposition Disposition: Home, Self Care
[2023-10-11] MEDS: 0.9% Normal Saline (1000mL) 1,000 ML 1000 ML IV (11:26)
[2023-10-11] MEDS: proCHLORPERazine 10 MG/2 ML Vial IV (11:27)
[2023-10-11] MEDS: DiphenhydrAMINE 50 MG/ML Syringe 25 MG IV (11:27)
[2023-10-11] MEDS: Ketorolac 30 MG/ML Syringe IV (11:27)
[2023-10-11 11:39] LABS: Absolute Lymphocyte Count 1.15 X10^3/uL (0.83-4.51); Absolute Neutrophil Count 5.1 X10^3/uL (2.0-7.7); Basophil# 0.07 X10^3/uL; Eosinophil# 0.06 X10^3/uL; Eosinophils% 0.9 % (0-5); Hematocrit 40.1 % (37-47); Hemoglobin 13.1 g/dL (12.0-15.0); Lymphocyte # 1.15 X10^3/ul (0.83-4.51); Lymphocyte % 17.1 % (19-41); Mean Corp Hgb Conc 32.7 g/dL (32-36); Mean Corpuscular Hgb 29.1 pg (27.0-32.0); Mean Corpuscular Volume 89.1 fL (81-99); Mean Platelet Vol. 9.8 fl (6.2-12.0); Monocyte# 0.36 X10^3/uL; Monocyte% 5.3 % (0-10); NRBC Flagged by Analyzer 0 % (0-5); Neutrophil # 5.08 X10^3/uL (2.7-7.7); Neutrophil % 75.4 % (47-70); Platelet Count 324 K/mm3 (150-450); RBC Distribution Width CV 11.9 % (11.6-14.6); RBC Distribution Width SD 38.5 fl (35.1-43.9); White Blood Count 6.7 K/mm3 (4.4-11.0)
[2023-10-11 11:52] LABS: Internal QC Validated? YES +Cl - CLEAR BKGD; Pregnancy, Serum, hCG Quali. NEGATIVE Negative
[2023-10-11 11:57] LABS: Anion Gap 3 (5-15); BUN 16 mg/dL (7-18); BUN/Creat Ratio 22.3 RATIO (10-20); Calcium,Total 9.3 mg/dL (8.5-10.1); Chloride 107 mmol/L (98-107); Creatinine, Serum 0.72 mg/dL (0.55-1.02); EST Glomerular Filtration Rate 99 mL/min (>60); Est Glom Filt Rate - Afr Amer 119 mL/min (>60); Estimated Creatinine Clearance 99.14 ml/min; Glucose 106 mg/dL (74-106); Potassium 4.1 mmol/L (3.5-5.1); Sodium Level 141 mmol/L (136-145)
[2023-10-11 13:04] VITALS: BP 99/71; PULSE 78; RESP 16; O2SAT 99
[2023-10-11] MEDS: Valproate Sodium 500 MG in Dextrose 5%-Water (50mL Bag) 50 ML 50 MG IV (13:40)
[2023-10-11] MEDS: MethylPREDNISolone 125 MG/2 ML Vial IV (13:40)
== END 2023-10-11 14:46 | disposition home or self-care (01) ==
PROVIDERS: Emergency Provider Emergency Medicine; Visit Provider Emergency Medicine
DX: G43.909 Migraine, unspecified, not intractable, without status migrainosus (principal); F17.200 Nicotine dependence, unspecified, uncomplicated; F12.90 Cannabis use, unspecified, uncomplicated; Z90.710 Acquired absence of both cervix and uterus
CPT/HCPCS: 70496; 80048; 84703; 85025; 96361; 96374; 96375; 99283; J7030; J7050; Q9967; A4216

== ENCOUNTER 2023-12-16 09:02 | Emergency (ER) | payer SELFPAY ==
[2023-12-16 09:02] VITALS: BP 118/82; PULSE 56; RESP 18; TEMP 36.1; O2SAT 100; BMI 24.6
--- NOTE | 2023-12-16 09:26 | EDS_ITS ---
HPI History of Present Illness Chief Complaint: Headache Detail of Chief Complaint: Awoke this morning with bilateral forehead headache. Informant: patient Onset/Context/Timing Onset: Today and Hours Timing: Continuous Current Severity: Moderate Maximum Severity: Moderate Associated Symptoms/Injury Associated Symptoms: Positive for Nausea, Vomiting and Photophobia; Negative for Fever, Sore Throat, Sinus Pressure, Preceding Aura or Visual Changes Injury - BEST: Negative for Direct Trauma, Fall or Assault Narrative Narrative: 33-year-old female history of migraine headaches. Prior CT of her brain in September which was negative for any aneurysm or bleed. She woke this morning with a headache with associated nausea vomiting. Is across her forehead. She does have photophobia with it. No fever. No trauma. No sinus congestion. This is similar to her prior migraines. She has a prior history of drug abuse and does not want any narcotics. She is not . Prior similar symptoms: Yes Recent Illness/Hospitalization: No PFSH [facility] Medical History (Updated 12/16/23 @ 11:[address] Dane Lee MD) History of migraine Endometriosis Home Medications ?Medication ?Instructions ?Recorded ?Last Taken ?Type acetaminophen 500 mg tablet 500 - 1,000 mg PO Q6H PRN PRN Pain 10/11/19 Unknown History Or Fever naproxen 500 mg tablet 500 mg PO BID PRN PRN Pain Or Fever 10/11/19 Unknown History estradiol 2 mg tablet 2 mg PO DAILY #100 tabs 10/18/19 Unknown Rx tramadol 50 mg tablet 50 mg PO BID 10/18/19 Unknown History ondansetron HCl 4 mg tablet 4 mg PO Q6H PRN nausea and 12/17/20 Unknown Rx (Zofran) vomiting #10 tabs potassium chloride 20 mEq 20 meq PO BID #8 tabs 12/17/20 Unknown Rx tablet,extended release atropine 1 % eye drops 1 drp LEFT EYE BID #2 mL 05/09/22 Unknown Rx diphenhydramine HCl 50 mg tablet 50 mg PO TID PRN headache #10 tabs 10/11/23 Unknown Rx (Benadryl Allergy) ketorolac 10 mg tablet 10 mg PO Q8H PRN pain 4 days #10 10/11/23 Unknown Rx tabs prochlorperazine maleate 10 mg 10 mg PO Q8H PRN nausea and 10/11/23 Unknown Rx tablet (Compazine) vomiting #10 tabs sumatriptan succinate 25 mg tablet See Rx Instructions PO .COMPLEX #7 12/16/23 Unknown Rx (Imitrex) tabs Allergy/AdvReac Type Severity Reaction Status Date / Time strawberry Allergy Hives Verified 12/16/23 09:03 venom-honey bee (bee venom Allergy Anaphylaxis Verified 12/16/23 09:03 (honey bee)) Family History Grandmother Heart disease Mother Thyroid disorder Surgical History S/P removal of ovarian cyst S/P hysterectomy S/P anal fissurectomy Status post hemorrhoidectomy Social History Smoking Status: Current every day smoker tobacco type: cigarettes alcohol intake: current alcohol intake frequency: a few times a week substance use type: marijuana ROS ROS ED ROS Narrative Headache. Nausea vomiting. Constitutional Constitutional ED: Denies chills or fever(s) Eyes Eyes: Denies blurry vision ENT ENT ED: Denies ear pain Cardiovascular Cardiovascular: Denies chest pain Respiratory/Chest Respiratory/Chest: Denies cough or dyspnea Gastrointestinal Gastrointestinal: Reports nausea and vomiting; Denies abdominal pain, constipation, diarrhea or melena Genitourinary Genitourinary ED: Denies dysuria or hematuria Musculoskeletal Musculoskeletal: Denies arthralgias or back pain Integumentary Denies abscess, Abrasions or rash Neurologic Neurologic: Reports headache(s); Denies paresthesias Psychiatric Psychiatric: Denies anxiety or depression Endocrine Endocrinology: Denies polydipsia Hematologic/Lymphatic Hematologic/Lymphatic: Denies easy bleeding, easy bruising or lymphadenopathy Allergic/Immunologic Allergic/Immunologic ED: Denies mouth swelling, tongue swelling or urticaria EXAM Physical Exam Narrative Exam Narrative: 34-year-old female lying in darkened room. Significant other at bedside. H EENT exam gives round reactive light. His motions are intact. No facial trauma or droop. No sinus tenderness. Neck nontender no meningismus. Lungs clear to auscultation bilaterally. Heart regular rhythm rate about 60 no murmur. Chest wall and ribs nontender. Abdomen soft nontender. Moving all 4 extremities. 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 Dorsi plantarflexion intact. Neurologic exam she is awake and alert. Answering questions and following commands. No motor loss. No numbness. NIH is 0. Const Vital Signs: 12/16/23 09:02 Temperature 96.9 F L Temperature Source Temporal Pulse Rate 56 L Respiratory Rate 18 Blood Pressure 118/82 H Blood Pressure Mean 94 Pulse Ox 100 Oxygen Delivery Method Room Air Positive well nourished and well developed; Negative for obese, cachectic, contractures or unkempt General Appearance ED: well developed; Negative for unkempt, cachectic, contractures, cyanotic, diaphoretic, NAD or pallor Nutritional Appearance: Negative for cachectic or obese HEENT Reports normocephalic and moist mucous membranes atraumatic; Negative for trauma, tenderness, temporal artery tenderness or vesicular rash Face and Sinus: Negative for sinus tenderness Eyes EOMs intact bilaterally General Eye ED: Negative for pale conjunctiva or scleral icterus Neck no lymphadenopathy, supple, no meningeal signs and no JVD General: Negative for tenderness Resp normal respiratory effort and clear to auscultation bilaterally Effort and Inspection: Negative for retractions Auscultation: Negative for rales, rhonchi, wheezes or diminished lung sounds Cardio regular rate, regular rhythm, S1 normal heart sound, S2 normal heart sound and no murmurs Rate: Negative for bradycardia or tachycardic Rhythm: Negative for abnormal rhythm GI non-tender and non-distended Auscultation: normoactive bowel sounds Palpation: soft; Negative for firm, tender or mass Back/Spine no CVA tenderness General Back: Negative for CVA tenderness or tenderness Cervical Spine: Negative for cervical spine tenderness Thoracic Spine / Upper Back: Negative for thoracic spinal tenderness Lumbar Spine / Lower Back: Negative for lumbar spinal tenderness Extremity normal to inspection, full ROM and normal capillary refill General Extremety ED: Negative for edema or tenderness General Extremity: Negative for edema Neuro oriented x3 and CN's II-XII intact bilaterally Sensorium / Orientation: awake, alert, oriented to person, oriented to place and oriented to time; Negative for orientation impaired, lethargic or stuporous Coordination / Balance: [id number] test normal Speech: speech normal Sensory Exam: No sensory level loss detected Motor Exam: strength 5/5 throughout Psych mental status grossly normal Appearance: Negative for unkempt Attitude: No agitated Mood & Affect: Negative for depressed, anxious or tearful Skin General Skin Exam: Negative for jaundice or pallor Lesions: no lesions Rashes: no rashes MDM MDM MDM Narrative Medical decision making narrative: 33-year-old female history of migraine headaches with a headache consistent with migraines. She will be treated with IV fluids, Toradol, Compazine and Benadryl and reassess. She had a recent CTA in September that was negative of her brain. No trauma. No fever. Review exam patient is doing well at 11:50 AM. She is feeling improved about 50%. She will be given additional dose of Benadryl. She said her nausea resolved. Her repeat neurologic exam is normal. NIH is 0. She is comfortable being discharged home. She be written for a prescription of Imitrex. Discharge Plan Triage Chief Complaint: Headache ED Provider: Dane Lee Dx/Rx/DC Orders Clinical Impression: Headache, migraine Instructions: ED, Migraine (Classical) Prescriptions: New sumatriptan succinate [Imitrex] 25 mg tablet See Rx Instructions .ROUTE .COMPLEX Qty: 7 0RF Rx Instructions: take 1 tab at onset of headache; if no relief may repeat 1 tab after at least 2 hrs; max = 4 tabs/24 hr No Action acetaminophen 500 MG tablet 500 - 1,000 mg PO Q6H PRN PRN (Reason: Pain Or Fever) naproxen 500 MG tablet 500 mg PO BID PRN PRN (Reason: Pain Or Fever) tramadol 50 MG tablet 50 mg PO BID estradiol 2 MG tablet 2 mg PO DAILY Qty: 100 4RF ondansetron HCl [Zofran] 4 mg tablet 4 mg PO Q6H PRN (Reason: nausea and vomiting) Qty: 10 0RF potassium chloride 20 mEq tablet extended release 20 meq PO BID Qty: 8 0RF atropine 1 % drops 1 drp LEFT EYE BID Qty: 2 0RF ketorolac 10 mg tablet 10 mg PO Q8H PRN (Reason: pain) 4 Days Qty: 10 0RF prochlorperazine maleate [Compazine] 10 mg tablet 10 mg PO Q8H PRN (Reason: nausea and vomiting) Qty: 10 0RF Benadryl Allergy 50 mg tablet 50 mg PO TID PRN (Reason: headache) Qty: 10 0RF Primary Care Provider: Care Physician,No Primary Referrals: Care Physician,No Primary [Primary Care Provider] - Activity Restrictions/Additional Instructions: Plenty of fluids and rest. 1-2 caffeinated beverages today. Alternate Tylenol and Motrin. Follow-up with not improving or return. 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 Print Language: Vietnamese Disposition Disposition: Home, Self Care
[2023-12-16] MEDS: 0.9% Normal Saline (1000mL) 1,000 ML 1000 ML IV (09:35)
[2023-12-16] MEDS: DiphenhydrAMINE 50 MG/ML Syringe IV (09:35)
[2023-12-16] MEDS: Ketorolac 30 MG/ML Syringe IV (09:36)
[2023-12-16] MEDS: proCHLORPERazine 10 MG/2 ML Vial IV (09:39)
[2023-12-16] MEDS: DiphenhydrAMINE 50 MG/ML Syringe 25 MG IV (12:01)
[2023-12-16 12:05] VITALS: BP 132/69; PULSE 75; RESP 16; TEMP 36.7; O2SAT 97
== END 2023-12-16 12:06 | disposition home or self-care (01) ==
PROVIDERS: Emergency Provider Emergency Medicine; Visit Provider Emergency Medicine
DX: G43.909 Migraine, unspecified, not intractable, without status migrainosus (principal); F17.200 Nicotine dependence, unspecified, uncomplicated; F12.90 Cannabis use, unspecified, uncomplicated
CPT/HCPCS: 96361; 96374; 96375; 96376; 99283; J7030; A4216

== ENCOUNTER 2024-07-16 21:10 | Emergency (ER) | payer SELFPAY ==
[2024-07-16 21:11] VITALS: BP 110/71; PULSE 72; RESP 18; TEMP 36.6; O2SAT 99; BMI 24.3
--- NOTE | 2024-07-16 21:29 | EDS_ITS ---
HPI <PAMELLA Posada - Last Filed: 07/16/24 21:50> HPI - GI History of Present Illness Chief Complaint: Abd Pain Narrative Narrative: Patient presenting today due to nausea and vomiting she has had since Wednesday. She reports feeling dehydrated and that she has not had any urinary output since Wednesday. She reports epigastric abdominal pain primarily with vomiting. She reports that her daughter has also had nausea and flulike symptoms. Patient has had subjective fevers and body aches. She denies alcohol use. She reports frequent marijuana use. She denies hematemesis, diarrhea, blood in the stool. She does have a history of a hysterectomy. PFSH <PAMELLA Posada - Last Filed: 07/16/24 21:50> PFSH Medical History History of migraine Endometriosis Home Medications ?Medication ?Instructions ?Recorded ?Last Taken ?Type sulfamethoxazole 800 1 tab PO BID #6 TABLETS 06/25 08/18 Unknown Rx mg-trimethoprim 160 mg tablet Allergy/AdvReac Type Severity Reaction Status Date / Time strawberry Allergy Hives Verified 07/16/24 21:11 venom-honey bee (bee venom Allergy Anaphylaxis Verified 07/16/24 21:11 (honey bee)) Family History Grandmother Heart disease Mother Thyroid disorder Surgical History S/P removal of ovarian cyst S/P hysterectomy S/P anal fissurectomy Status post hemorrhoidectomy Social History Smoking Status: Current every day smoker tobacco type: e-cigarettes alcohol intake: current alcohol intake frequency: a few times a week substance use type: marijuana ROS <PAMELLA Posada - Last Filed: 07/16/24 21:50> ROS ED Constitutional Constitutional ED: Reports fever(s) and subjective; Denies chills Cardiovascular Cardiovascular: Denies chest pain Respiratory/Chest Respiratory/Chest: Denies cough or dyspnea Gastrointestinal Gastrointestinal: Reports abdominal pain, nausea and vomiting; Denies diarrhea Genitourinary Genitourinary ED: Denies dysuria, hematuria or urinary urgency Musculoskeletal Musculoskeletal: Denies arthralgias or myalgias Integumentary Denies rash Neurologic Neurologic: Denies weakness EXAM <PAMELLA Posada - Last Filed: 07/16/24 21:50> Physical Exam Const Vital Signs: 07/16/24 21:11 07/16/24 22:10 07/16/24 23:00 Temperature 97.9 F Temperature Source Oral Pulse Rate 72 51 L 55 L Respiratory Rate 18 16 16 Blood Pressure 110/71 112/64 97/64 Blood Pressure Mean 84 80 75 Pulse Ox 99 99 96 Oxygen Delivery Method Room Air Room Air Room Air Positive well nourished, well developed and no apparent distress General Appearance ED: well developed HEENT Reports normocephalic, head/scalp atraumatic and dry mucous membranes Mouth ED: Yes dry mucous membranes Mouth: dry mucous membranes Eyes PERRL and EOMs intact bilaterally Neck full ROM and supple Chest Wall inspection of chest normal Resp normal respiratory effort and clear to auscultation bilaterally Cardio regular rate and regular rhythm GI soft to palpation, non-tender, non-distended and no masses Back/Spine normal ROM and normal to inspection Extremity normal to inspection and full ROM Neuro oriented x3, CN's II-XII intact bilaterally, moves all extremities, no focal motor deficits and no sensory deficits noted Sensorium / Orientation: awake and alert Psych mental status grossly normal and thought process normal Skin no rashes or lesions noted and no wounds <Dr. Ty Aponte, - Last Filed: 07/17/24 01:24> Physical Exam Const Vital Signs: 07/16/24 21:11 07/16/24 22:10 07/16/24 23:00 Temperature 97.9 F Temperature Source Oral Pulse Rate 72 51 L 55 L Respiratory Rate 18 16 16 Blood Pressure 110/71 112/64 97/64 Blood Pressure Mean 84 80 75 Pulse Ox 99 99 96 Oxygen Delivery Method Room Air Room Air Room Air MDM <PAMELLA Posada - Last Filed: 07/16/24 21:50> [facility] Narrative Medical decision making narrative: Patient presenting today due to nausea and vomiting that started yesterday. She has had subjective fevers and bodyaches. Her daughter is currently sick with flulike symptoms and nausea. Patient does report frequent marijuana use, no history of cyclic vomiting syndrome. She epigastric abdominal pain primarily with vomiting, she reports that her pain is improved with rest, her abdomen is soft and nontender on exam. Abdominal labs obtained. COVID/influenza/RSV swab will be obtained. She will be given IV fluids and Zofran. Lab Data Labs: Laboratory Results - last 24 hr 07/16/24 07/16/24 21:20 23:38 WBC 6.7 RBC 4.91 Hgb 15.0 Hct 41.7 MCV 84.9 MCH 30.5 MCHC 36.0 RDW Std Deviation 36.2 RDW Coeff of Ayse 11.8 Plt Count 298 MPV 10.5 Immature Gran % (Auto) 0.300 Neut % (Auto) 50.5 Lymph % (Auto) 28.2 Bent % (Auto) 18.5 H Eos % (Auto) 1.8 Baso % (Auto) 0.7 Absolute Neuts (auto) 3.4 Absolute Lymphs (auto) 1.90 Nucleated RBC % 0 Sodium 140 Potassium 3.7 Chloride 101 Carbon Dioxide 23.1 Anion Gap 17 H BUN 26 H Creatinine 0.95 Estim Creat Clear Calc 68.37 Est GFR (MDRD) Non-Af 80 BUN/Creatinine Ratio 27.8 H Glucose 102 H Calcium 9.8 Total Bilirubin 0.25 AST 34 H ALT 13 Alkaline Phosphatase 78 Total Protein 7.6 Albumin 4.6 Globulin 3.1 Albumin/Globulin Ratio 1.5 Lipase 33 Urine Color Yellow Urine Clarity Cloudy Urine pH 5.0 Ur Specific [place] 1.025 Urine Protein 100 H Urine Glucose (UA) Normal Urine Ketones 50 H Urine Occult Blood 10 H Urine Nitrite Negative Urine Bilirubin 1 H Urine Urobilinogen 1 H Ur Leukocyte Esterase 100 H Urine RBC 0 SEEN Urine WBC 50-100 SEEN Ur Squamous Epith Cells 5-10 SEEN Urine Bacteria 3+ Hyaline Casts 0-5 SEEN Fine Granular Casts 0-5 SEEN Urine Mucus 4+ <Dr. Ty Aponte, DO - Last Filed: 07/17/24 01:24> [facility] Lab Data Labs: Laboratory Results - last 24 hr 07/16/24 07/16/24 21:20 23:38 WBC 6.7 RBC 4.91 Hgb 15.0 Hct 41.7 MCV 84.9 MCH 30.5 MCHC 36.0 RDW Std Deviation 36.2 RDW Coeff of [place] 11.8 Plt Count 298 MPV 10.5 Immature Gran % (Auto) 0.300 Neut % (Auto) 50.5 Lymph % (Auto) 28.2 Bent % (Auto) 18.5 H Eos % (Auto) 1.8 Baso % (Auto) 0.7 Absolute Neuts (auto) 3.4 Absolute Lymphs (auto) 1.90 Nucleated RBC % 0 Sodium 140 Potassium 3.7 Chloride 101 Carbon Dioxide 23.1 Anion Gap 17 H BUN 26 H Creatinine 0.95 Estim Creat Clear Calc 68.37 Est GFR (MDRD) Non-Af 80 BUN/Creatinine Ratio 27.8 H Glucose 102 H Calcium 9.8 Total Bilirubin 0.25 AST 34 H ALT 13 Alkaline Phosphatase 78 Total Protein 7.6 Albumin 4.6 Globulin 3.1 Albumin/Globulin Ratio 1.5 Lipase 33 Urine Color Yellow Urine Clarity Cloudy Urine pH 5.0 Ur Specific [place] 1.025 Urine Protein 100 H Urine Glucose (UA) Normal Urine Ketones 50 H Urine Occult Blood 10 H Urine Nitrite Negative Urine Bilirubin 1 H Urine Urobilinogen 1 H Ur Leukocyte Esterase 100 H Urine RBC 0 SEEN Urine WBC 50-100 SEEN Ur Squamous Epith Cells 5-10 SEEN Urine Bacteria 3+ Hyaline Casts 0-5 SEEN Fine Granular Casts 0-5 SEEN Urine Mucus 4+ Treatment and Re-Evaluation :: I have personally performed a face to face assessment of the patient and have reviewed the COLBY Note. I performed a substantive portion of the visit including all aspects of the following. My de [place] rosa findings include: History: Patient presents with nausea, vomiting, and abdominal pain that has been getting worse over the past few days. Patient states her pain is aching. Patient states it is diffuse across her abdomen. Patient denies any hematemesis or coffee-ground emesis. Patient denies any diarrhea, melena, or hematochezia. Patient states her pain is better with sitting in a bath. Patient states she has had decreased urine output over the past couple days. Exam: Vital signs are stable. Patient is afebrile. Patient is in no acute distress. Oral mucosa is pink and moist. Neck is supple. Trachea is midline. There is no JVD. Heart was regular rate and rhythm. Lungs are clear and equal bilaterally. Abdomen is soft. Bowel sounds are normal. There is no tenderness. Cranial nerves II through XII are intact. There are no focal motor or sensory deficits noted. Medical Decision Making: Differential diagnosis includes viral illness, dehydration, electrolyte abnormality, cannabis hyperemesis syndrome, pancreatitis, and urinary tract infection. CBC will be obtained to assess for leukocytosis and anemia. Comprehensive metabolic profile will be obtained to assess for hepatic function, renal function, and electrolyte abnormality. Urinalysis will be obtained to assess for urinary tract infection and hematuria. Lipase will be obtained to assess for pancreatitis. COVID-19, influenza, and RSV PCR will be obtained to assess for viral illness. Patient was given IV fluids and Zofran. CBC was reviewed and was within normal limits. Comprehensive metabolic profile was reviewed. BUN was slightly elevated at 26. Creatinine was normal at 0.95. Glucose was 102. The remainder is within normal limits. Lipase was reviewed and was normal at 33. Urinalysis was reviewed. Leukocyte esterase was 100. There are 50-100 white blood cells. There is 3+ bacteria. COVID-19 PCR was reviewed and was positive. Influenza PCR was reviewed and was negative for influenza A and influenza B. RSV PCR was reviewed and was negative. Patient was advised of her findings. Urine culture was ordered. Patient was given a dose of Bactrim here. Patient was given a prescription for Bactrim. Patient was instructed to take Tylenol or ibuprofen as needed for any fevers. Patient was instructed to drink plenty of fluids. Patient was instructed to follow-up with her primary care physician in 5 to 7 days. Patient understood and was agreeable with plan. All questions were answered. Discharge Plan Triage Chief Complaint: Abd Pain ED Midlevel Provider: Valeria Emery ED Provider: Ty Aponte Dx/Rx/DC Orders Clinical Impression: Urinary tract infection, COVID-19 Instructions: Coronavirus Disease 2019 (COVID-19): Overview, ED Cystitis Female Adult Prescriptions: New sulfamethoxazole-trimethoprim 800-160 mg tablet 1 tab PO BID Qty: 6 0RF Stand Alone Forms: ED Work / School Excuse Primary Care Provider: Care Physician,No Primary Referrals: Care Physician,No Primary [Primary Care Provider] - Ambar Mccoy, [facility] [[facility]] - 5-7 Days Print Language: Belarusian Disposition Disposition: Home, Self Care Discharge Date/Time: 07/17/24 00:44
[2024-07-16 21:43] LABS: Absolute Neutrophil Count 3.4 X10^3/uL (2.0-7.7); Basophil# 0.05 X10^3/uL; Basophil% 0.7 % (0-1); Eosinophil# 0.12 X10^3/uL; Eosinophils% 1.8 % (0-5); Hematocrit 41.7 % (37-47); Lymphocyte % 28.2 % (19-41); Mean Corpuscular Hgb 30.5 pg (27.0-32.0); Mean Corpuscular Volume 84.9 fL (81-99); Mean Platelet Vol. 10.5 fl (6.2-12.0); Monocyte# 1.25 X10^3/uL; Monocyte% 18.5 % (0-10); NRBC Flagged by Analyzer 0 % (0-5); Neutrophil % 50.5 % (47-70); Platelet Count 298 K/mm3 (150-450); RBC Distribution Width CV 11.8 % (11.6-14.6); RBC Distribution Width SD 36.2 fl (35.1-43.9); Red Blood Count 4.91 M/mm3 (4.2-5.4); White Blood Count 6.7 K/mm3 (4.4-11.0)
[2024-07-16] MEDS: Ondansetron 4 MG/2 ML Vial IV (22:01)
[2024-07-16] MEDS: 0.9% Normal Saline (1000mL) 1,000 ML 999 ML IV (22:01)
[2024-07-16 22:10] VITALS: BP 112/64; PULSE 51; RESP 16; O2SAT 99
[2024-07-16 22:24] LABS: ALB/GLOB Ratio 1.5 RATIO (0.9-2.4); AST(SGOT) 34 U/L (<=31); Alanine Aminotransfer ALT/SGPT 13 U/L (<=34); Albumin, Serum 4.6 g/dL (3.5-5.0); Alkaline Phosphatase 78 U/L (35-104); Anion Gap 17 (5-15); BUN 26 mg/dL (4-19); BUN/Creat Ratio 27.8 RATIO (10-20); Calcium,Total 9.8 mg/dL (7.6-11.0); Carbon Dioxide 23.1 mmol/L (21.0-32.0); Chloride 101 mmol/L (98-108); Creatinine, Serum 0.95 mg/dL (0.70-1.20); EST Glomerular Filtration Rate 80 (>60); Estimated Creatinine Clearance 68.37 ml/min (50-250); Globulin 3.1 g/dL (2.2-4.2); Glucose 102 mg/dL (70-99); Lipase 33 U/L (13-75); Potassium 3.7 mmol/L (3.3-5.1); Protein, Total 7.6 g/dL (5.9-8.4); Sodium Level 140 mmol/L (133-145); Total Bilirubin 0.25 mg/dL (0.00-1.30)
[2024-07-16 23:00] VITALS: BP 97/64; PULSE 55; RESP 16; O2SAT 96
[2024-07-16 23:43] LABS: Glucose, Dipstick Normal (Normal); Ketone-Dipstick 50 mg/dl (Negative); Leukocyte Esterase-Dipstick 100 /ul (Negative); Nitrite-Dipstick Negative (Negative); Occult Blood-Urine 10 /ul (Negative); Protein-Dipstick 100 mg/dl (Negative); Specific Gravity, Urine 1.025 (1.002-1.030); Urine Clarity Cloudy (Clear); Urine Urobilinogen 1 mg/dl (Normal)
[2024-07-16 23:52] LABS: Bacteria 3+ /hpf (None Seen); Color, Urine Yellow (Yellow); Mucous, Urine 4+ /hpf (<or=2+); Red Blood Cells-Urine 0 SEEN /hpf (0-5); Squamous Epithelial Cells - UA 5-10 SEEN /hpf (5-10); Urine Bilirubin Dipstick 1 mg/dL (Negative); White Blood Cells 50-100 SEEN /hpf (0-5)
[2024-07-16 23:53] LABS: Fine Granular Cast- Urine 0-5 SEEN /lpf (0-5); Hyaline Cast 0-5 SEEN /lpf (0-5)
[2024-07-17] MEDS: Smz/Tmp Ds Tablet 1 TABLET PO (00:41)
== END 2024-07-17 00:44 | disposition home or self-care (01) ==
PROVIDERS: Physician Assistant; Emergency Provider Emergency Medicine; Visit Provider Emergency Medicine
DX: U07.1 COVID-19 (principal); N39.0 Urinary tract infection, site not specified; F12.90 Cannabis use, unspecified, uncomplicated; Z90.710 Acquired absence of both cervix and uterus; F17.290 Nicotine dependence, other tobacco product, uncomplicated
CPT/HCPCS: 80053; 81001; 83690; 85025; 87631; 96361; 96374; 99283; A4216; J2405

== ENCOUNTER 2024-07-17 11:54 | Emergency (ER) | payer SELFPAY ==
[2024-07-17 11:55] VITALS: TEMP 37.2; BMI 24.6
[2024-07-17 12:00] VITALS: BP 124/70; PULSE 58; RESP 19; O2SAT 98
--- NOTE | 2024-07-17 12:44 | EX.ED.DYSGE1 ---
HPI History of Present Illness Chief Complaint: General Illness Informant: patient and EMS Narrative Narrative: 34-year-old female presenting to the emergency room with persistent vomiting. Patient is not very forthcoming with the information and I have to pull the information using very direct questioning. Patient states she has had vomiting for the past several days as well as upper abdominal pain. Patient states that she was seen in the emergency department last night was diagnosed with COVID-19 and a urinary tract. She states that she called the ambulance this morning after experiencing tingling in her hands and her feet and was concerned that that was indicative of something more wrong. She had blood work and a urine specimen last night. Those results were reviewed. She denies any diarrhea. No fever for at least 48 hours. She denies cough. Patient does utilize frequent cannabis but has never had cannabis hyperemesis syndrome. PFSH PFSH Medical History History of migraine Endometriosis Home Medications ?Medication ?Instructions ?Recorded ?Last Taken ?Type ondansetron 4 mg disintegrating 4 mg PO Q6H PRN PRN Nausea #15 tabs 07/17/24 Unknown Rx tablet sulfamethoxazole 800 1 tab PO BID #6 TABLETS 07/17/24 Unknown Rx mg-trimethoprim 160 mg tablet Allergy/AdvReac Type Severity Reaction Status Date / Time strawberry Allergy Hives Verified 07/17/24 11:57 venom-honey bee (bee venom Allergy Anaphylaxis Verified 07/17/24 11:57 (honey bee)) Family History Grandmother Heart disease Mother Thyroid disorder Surgical History S/P removal of ovarian cyst S/P hysterectomy S/P anal fissurectomy Status post hemorrhoidectomy Social History (Updated 07/17/24 @ 11:59 by Rose Garcia) household members: significant other and family housing: house Smoking Status: Current every day smoker tobacco type: e-cigarettes alcohol intake: current alcohol intake frequency: a few times a week substance use type: marijuana ROS ROS ED Constitutional Constitutional ED: Reports fever(s); Denies chills or weight loss Eyes Eyes: Denies change in vision or diplopia ENT ENT ED: Denies ear pain, rhinorrhea or sore throat Cardiovascular Cardiovascular: Denies chest pain, orthopnea, palpitations or racing heartbeat Respiratory/Chest Respiratory/Chest: Denies cough, dyspnea or orthopnea Gastrointestinal Gastrointestinal: Reports abdominal pain, nausea and vomiting; Denies diarrhea Genitourinary Genitourinary ED: Denies dysuria, hematuria or urinary frequency Musculoskeletal Musculoskeletal: Denies arthralgias or myalgias Integumentary Denies abscess or rash Neurologic Neurologic: Denies headache(s) or weakness Psychiatric Psychiatric: Denies anxiety, depression, suicidal ideation or suicidal thoughts Endocrine Endocrinology: Denies polydipsia, polyphagia or polyuria Allergic/Immunologic Allergic/Immunologic ED: Denies mouth swelling, tongue swelling or urticaria EXAM Physical Exam Const Vital Signs: 07/17/24 11:55 07/17/24 11:57 07/17/24 12:00 Temperature 98.9 F Temperature Source Oral Pulse Rate 58 L Respiratory Rate 19 H Respiratory Effort Normal Non-Labored Respiratory Pattern Normal Blood Pressure 124/70 H Blood Pressure Mean 88 Pulse Ox 98 Positive well nourished and well developed General Appearance ED: well developed HEENT Reports normocephalic, head/scalp atraumatic and moist mucous membranes Eyes PERRL and EOMs intact bilaterally Neck no lymphadenopathy, supple and no JVD Resp normal respiratory effort and clear to auscultation bilaterally Cardio regular rate, regular rhythm and no murmurs GI normal to inspection, nondistended, normoactive bowel sounds and non-tender GI Narrative: The abdomen is very benign. She allows deep palpation of the right upper quadrant and the epigastrium. He is nontender. Inspection: Negative for abdominal distention Auscultation: normoactive bowel sounds Palpation: soft; Negative for guarding or rebound tenderness present Back/Spine no CVA tenderness and normal ROM Extremity normal to inspection General Extremety ED: Negative for edema General Extremity: Negative for edema Neuro oriented x3 and CN's II-XII intact bilaterally Sensorium / Orientation: alert Motor Exam: strength 5/5 throughout Psych mental status grossly normal Mood & Affect: Negative for depressed or tearful Skin no rashes or lesions noted and no wounds MDM MDM MDM Narrative Medical decision making narrative: Differential diagnosis includes dehydration viral syndrome cannabis hyperemesis syndrome pancreatitis biliary colic abnormalities Patient just had blood work done less than 12 hours ago. She is not tachycardic she is not hypotensive. She has moist mucous membranes and excellent capillary refill. I do not feel strongly that we need to recheck the labs as her abdomen exam is benign. Patient received Toradol Zofran and IV fluids. I will give her a dose of her Bactrim and also be writing for Zofran. I believe the patient most likely has a viral illness (COVID-19). History & Record Review Discussion w/independent historian: EMS personnel and Patient Additional record(s) reviewed:: Prior ED visit and Prior labs Discharge Plan Triage Chief Complaint: General Illness ED Provider: Robby Vargas Dx/Rx/DC Orders Clinical Impression: COVID-19, Vomiting Instructions: ED Vomiting (Adult) Prescriptions: New ondansetron 4 mg tablet,disintegrating 4 mg PO Q6H PRN PRN (Reason: Nausea) Qty: 15 0RF No Action sulfamethoxazole-trimethoprim 800-160 mg tablet 1 tab PO BID Qty: 6 0RF Primary Care Provider: Care Physician,No Primary Referrals: Mely Ferrer MD [Med Staff - Shipping And Receiving Associate] - As Needed (for primary care) Care Physician,No Primary [Primary Care Provider] - Print Language: Mauritian Disposition Disposition: Home, Self Care
[2024-07-17] MEDS: Ondansetron 4 MG/2 ML Vial IV (12:51)
[2024-07-17] MEDS: Ketorolac 30 MG/ML Syringe IV (12:51)
[2024-07-17] MEDS: 0.9% Normal Saline (1000mL) 1,000 ML 1000 ML IV (12:51)
[2024-07-17 14:00] VITALS: BP 116/78; PULSE 60; RESP 16; O2SAT 98
[2024-07-17] MEDS: Smz/Tmp Ds Tablet 1 TABLET PO (14:18)
[2024-07-17 14:20] VITALS: BP 116/78; PULSE 60; RESP 16; TEMP 37.1; O2SAT 98
== END 2024-07-17 14:21 | disposition home or self-care (01) ==
PROVIDERS: Emergency Provider Emergency Medicine; Referring Provider Emergency Medicine; Visit Provider Emergency Medicine
DX: U07.1 COVID-19 (principal); Z90.710 Acquired absence of both cervix and uterus; F17.290 Nicotine dependence, other tobacco product, uncomplicated; F12.90 Cannabis use, unspecified, uncomplicated; R11.2 Nausea with vomiting, unspecified; R10.9 Unspecified abdominal pain
CPT/HCPCS: 96361; 96374; 96375; 99285; A4216; J2405